=== PATIENT | female | born 1975 | race Hispanic/Latino ===

== ENCOUNTER 2022-10-10 06:39 | Observation (INO) | payer OTHER ==
[2022-10-08 10:15] LABS: BASOPHILS % (AUTO) 0.5 % (0.0-5.0); EOSINOPHILS % (AUTO) 1.3 % (0.0-8.0); LYMPHOCYTES % (AUTO) 16.6 % (21.0-51.0); MEAN CORPUSCULAR HEMOGLOBIN 27.1 pg (27.0-33.0); MEAN CORPUSCULAR HGB CONC 31.9 g/dL (32.0-36.0); MEAN CORPUSCULAR VOLUME 85.1 fL (79-99); MONOCYTES % (AUTO) 6.4 % (3.0-13.0); NEUTROPHILS % (AUTO) 74.9 % (40.0-77.0); PLATELET COUNT (AUTO) 228 K/uL (130-400); RED BLOOD CELL COUNT(AUTO) 5.05 MIL/uL (4.00-5.50); RED CELL DISTRIBUTION WIDTH 14.6 % (11.0-15.5); WHITE BLOOD COUNT (AUTO) 6.2 K/uL (4.8-10.8)
[2022-10-08 10:30] LABS: INR 0.94 (0.85-1.15); PROTHROMBIN TIME 10.3 SEC (9.6-11.6)
[2022-10-08 10:32] LABS: CREATININE 0.4 mg/dL (0.5-1.5); POTASSIUM 4.1 mmol/L (3.5-5.1)
[2022-10-08 10:49] LABS: APPEARANCE,URINE CLEAR (CLEAR); BILIRUBIN,URINE NEGATIVE (NEGATIVE); COLOR,URINE COLORLESS (YELLOW); GLUCOSE, URINE (UA) NEGATIVE (NEGATIVE); KETONES,URINE NEGATIVE (NEGATIVE); LEUKOCYTE ESTERASE ,URINE NEGATIVE Leu/uL (NEGATIVE); NITRATE,URINE NEGATIVE (NEGATIVE); OCCULT BLOOD,URINE NEGATIVE (NEGATIVE); PROTEIN,URINE NEGATIVE (NEGATIVE); UROBILINOGEN,URINE 0.2 mg/dL (0.2-1.0)
[2022-10-08 10:52] VITALS: BP 151/83
[2022-10-10] VITALS (26 sets, daily range): BP systolic 120–151; BP diastolic 68–92
[~2022-10-10] VITALS: Ht 162.6 cm; Wt 82.2 kg
[~2022-10-10 06:39] MED LIST: METF-444 PO
[2022-10-10] MEDS ORDERED: CEFAZOLIN SODIUM 2 GM VIAL ONE (07:34)
[2022-10-10] MEDS ORDERED: 0.9%NACL 1000ML 1,000 ML IV ONE (07:36)
[2022-10-10] MEDS ORDERED: MIDAZOLAM HCL 1 MG/ML 2ML VIAL ONE (09:04)
[2022-10-10] MEDS ORDERED: PROPOFOL 10 MG/ML 20ML VIAL IV ONE (09:04)
[2022-10-10] MEDS ORDERED: ROCURONIUM 10MG/1ML SYR 10 MG/ML ML ONE (09:04)
[2022-10-10] MEDS ORDERED: FENTANYL CITRATE PF 50 MCG/1 ML 2ML VIAL ONE ×4 (09:05→12:51)
[2022-10-10] MEDS ORDERED: ROPIVACAINE 0.5% 5MG/ML 30ML IJ ONE (09:10)
[2022-10-10] MEDS ORDERED: LIDOCAINE 2%-EPI 1:200,000 20 ML VIAL IJ ONE (09:10)
[2022-10-10] MEDS ORDERED: DEXAMETHASONE SOD PHOSPHATE 4 MG/ML 1ML VIAL ONE (09:11)
[2022-10-10] MEDS ORDERED: CEFAZOLIN SODIUM 2 GM VIAL IVPB ONE (09:45)
[2022-10-10] MEDS ORDERED: EPHEDRINE SULFATE 50 MG/ML AMPULE ONE (11:38)
[2022-10-10] MEDS ORDERED: ONDANSETRON 4MG INJ ONE (12:37)
[2022-10-10] MEDS ORDERED: GLYCOPYRROLATE 1 MG/5 ML SYRINGE ONE (12:44)
[2022-10-10] MEDS ORDERED: NEOSTIGMINE 5MG/5ML SYR IV ONE (12:44)
[2022-10-10] MEDS ORDERED: ONDANSETRON 4MG INJ IVP PRN ×2 (16:30→17:00)
[2022-10-10] MEDS ORDERED: CEFAZOLIN SODIUM 2 GM in 0.9%NACL 50ML 50 ML IV SCH (16:30)
[2022-10-10] MEDS ORDERED: MORPHINE 4 MG SYG IV PRN (16:30)
[2022-10-10] MEDS ORDERED: IBUPROFEN 800 MG TAB PO ONE (17:00)
[2022-10-10] MEDS ORDERED: MORPHINE 4 MG SYG IVP PRN (17:00)
[2022-10-10] MEDS: CEFAZOLIN SODIUM 2 GM VIAL IVPB SCH (17:31)
[2022-10-10] MEDS: TRAMADOL HCL 50 MG TABLET PO SCH (18:44)
[2022-10-10] MEDS: IBUPROFEN 800 MG TAB PO SCH (21:23)
[2022-10-11] VITALS: BP 130/87
[2022-10-11] MEDS: TRAMADOL HCL 50 MG TABLET PO SCH ×3 (00:07→12:28)
[2022-10-11] MEDS: CEFAZOLIN SODIUM 2 GM VIAL IVPB SCH (00:08)
[2022-10-11 04:00] VITALS: BP 135/86
[2022-10-11 05:11] LABS: BASOPHILS % (AUTO) 0.3 % (0.0-5.0); EOSINOPHILS % (AUTO) 0.4 % (0.0-8.0); HEMATOCRIT 34.9 % (36-48); LYMPHOCYTES % (AUTO) 17.6 % (21.0-51.0); MEAN CORPUSCULAR HEMOGLOBIN 27.1 pg (27.0-33.0); MEAN CORPUSCULAR HGB CONC 32.4 g/dL (32.0-36.0); MEAN CORPUSCULAR VOLUME 83.7 fL (79-99); MONOCYTES % (AUTO) 10.8 % (3.0-13.0); NEUTROPHILS % (AUTO) 70.8 % (40.0-77.0); PLATELET COUNT (AUTO) 214 K/uL (130-400); RED BLOOD CELL COUNT(AUTO) 4.17 MIL/uL (4.00-5.50); RED CELL DISTRIBUTION WIDTH 14.8 % (11.0-15.5); WHITE BLOOD COUNT (AUTO) 7.2 K/uL (4.8-10.8)
[2022-10-11 05:20] LABS: CREATININE 0.6 mg/dL (0.5-1.5); POTASSIUM 3.4 mmol/L (3.5-5.1)
[2022-10-11 08:00] VITALS: BP 130/77
[2022-10-11] MEDS: IBUPROFEN 800 MG TAB PO SCH ×2 (09:48→16:21)
[2022-10-11 11:44] VITALS: BP 132/75
[2022-10-11 15:50] VITALS: BP 135/77
== END 2022-10-11 18:15 | disposition home or self-care (01) ==
LOC: DAH 06:39 → DAHIP 06:40 → 4CH 16:15
PROVIDERS: ADMIT Student in an Organized Health Care Education/Training Program; ATTEND Student in an Organized Health Care Education/Training Program
DX: C50.912 Malignant neoplasm of unspecified site of left female breast (principal); Z20.822 Contact with and (suspected) exposure to COVID-19; Z92.21 Personal history of antineoplastic chemotherapy; Z79.899 Other long term (current) drug therapy; Z98.890 Other specified postprocedural states
CPT/HCPCS: 80048 ×2; 85025 ×2; 85610; 85730; 87426; 81003; 36415 ×2; 19307; 96365; 82948 ×2; 96366; A6260; G0378 ×26; G0379; J7120; J3010 ×4; J3490 ×3; J2710; J7030; J2250; J2704; J2405; J1100; J2795; J0690 ×4; A4649; A4215; A4223; A4222; A4221; A4663; A4600 ×2